=== PATIENT | female | born 1955 | race Asian ===

== ENCOUNTER 2017-07-20 21:57 | Emergency (ER) | payer OTHER ==
[~2017-07-20] VITALS: Ht 154.9 cm; Wt 53.5 kg
[2017-07-20 22:20] VITALS: BP 141/77
== END 2017-07-21 03:00 | disposition home or self-care (01) ==
LOC: ER 22:07
DX: S01.152A Open bite of left eyelid and periocular area, initial encounter (principal); E78.5 Hyperlipidemia, unspecified; W54.0XXA Bitten by dog, initial encounter; Y93.89 Activity, other specified; Y92.89 Other specified places as the place of occurrence of the external cause; Y99.8 Other external cause status; Z88.6 Allergy status to analgesic agent; Z88.8 Allergy status to other drugs, medicaments and biological substances

== ENCOUNTER → 2020-03-27 | Day surgery (SDC) | payer OTHER ==
[2020-03-21 14:49] LABS: Urine WBC None Seen /hpf (0 - 5)
[2020-03-21 15:02] LABS: Basophils # (auto) 0.1 10 ^3/uL (0-0.2); Basophils % (auto) 0.8 % (0.0-2.0); Eosinophils # (auto) 0.2 10 ^3/uL (0-0.8); Eosinophils % (auto) 2.3 % (0.0-7.0); Hemoglobin 12.2 g/dL (12.2-16.2); Lymphocytes # (auto) 3.1 10 ^3/uL (0.4-5.4); Lymphocytes % (auto) 41.8 % (10.0-50.0); Mean Corpuscular Hemoglobin 30.6 pg (28.0-32.0); Mean Corpuscular Volume 92.8 fL (80.0-100.0); Monocytes # (auto) 0.4 10 ^3/uL (0-1.3); Neutrophils # (auto) 3.7 10 ^3/uL (1.6-8.6); Neutrophils % (auto) 50.1 % (37.0-80.0); Nucleated Red Blood Cells % 0.1 %; Platelet Count (auto) 235 10^3/uL (140-450); Red Blood Cells 3.99 10^6/uL (4.0-5.20); Red Cell Distribution Width 13.4 % (11.8-14.3); White Blood Cell 7.5 10^3/uL (4.4-10.8)
[2020-03-21 15:15] LABS: Albumin 3.7 g/dL (3.4-5.0)
[2020-03-21 15:17] LABS: INR 0.97 (0.9-1.15); Partial Thromboplastin Time 24.9 sec (23.0-31.2)
[2020-03-21 15:18] LABS: BUN/Creatinine Ratio 11.2; Bilirubin, Total 0.2 mg/dL (0.2-1.0); Total Protein 7.5 g/dL (6.4-8.2)
[2020-03-21 18:10] LABS: Urine Bacteria NONE SEEN /hpf (None Seen); Urine Blood Negative /uL (Negative); Urine Specific Gravity 1.004 (1.001-1.035)
[~2020-03-27] VITALS: Ht 154.9 cm; Wt 54.4 kg
[~2020-03-27] MED LIST: ATOR20TA50 PO; CHOL1TAB28 PO; CITA-36 PO; CLON1TAB10 PO; KETAMINE HCL 10 ML ONE; LAMO200T34 PO; LEVO25TA6 PO; MIDAZOLAM HCL 1MG/1ML-2 ML VIAL ONE; MORPHINE SULFATE 4 MG/ML SYR/VIAL IV PRN; ONDANSETRON HCL 4 MG/2 ML VIAL IV PRN; ONDANSETRON HCL 4 MG/2 ML VIAL ONE; PANT40TA2 PO; PROPOFOL 10 MG/ML 20 ML IV ONE; RIS1T PO; SODIUM CHLORIDE LOCK 10 ML ONE; ceFAZolin 1GM/50ML 50 ML IV ONE; fentaNYL CITRATE 100 MCG/2 ML VL ONE
[2020-03-27] MEDS: HYDROmorphone HCL 2 MG/ML VL IV PRN ×3 (13:10→15:00)
[2020-03-27 15:30] VITALS: BP 127/59
== END | disposition home or self-care (01) ==
LOC: SUR 10:07
PROVIDERS: ATTEND Orthopaedic Surgery Adult Reconstructive Orthopaedic Surgery
DX: Z47.2 Encounter for removal of internal fixation device (principal); E11.9 Type 2 diabetes mellitus without complications; F20.9 Schizophrenia, unspecified; F31.9 Bipolar disorder, unspecified; E03.9 Hypothyroidism, unspecified; Z88.8 Allergy status to other drugs, medicaments and biological substances; Z79.899 Other long term (current) drug therapy; Z20.828 Contact with and (suspected) exposure to other viral communicable diseases; Z98.890 Other specified postprocedural states
CPT/HCPCS: 20680; 36415; 73600; 80053; 81001; 85025; 85610; 85730; 88300; J0690; J1170; J2250; J2405; J2704; J3010; U0003; 76000

== ENCOUNTER 2020-10-27 22:57 | Emergency (ER) | payer OTHER ==
[~2020-10-27] VITALS: Ht 154.9 cm; Wt 54.4 kg
[~2020-10-27 22:57] MED LIST changes: -CITA-36 PO; +CITA40TA12 PO; -KETAMINE HCL 10 ML ONE; -MIDAZOLAM HCL 1MG/1ML-2 ML VIAL ONE; -MORPHINE SULFATE 4 MG/ML SYR/VIAL IV PRN; -ONDANSETRON HCL 4 MG/2 ML VIAL IV PRN; -ONDANSETRON HCL 4 MG/2 ML VIAL ONE; -PROPOFOL 10 MG/ML 20 ML IV ONE; -SODIUM CHLORIDE LOCK 10 ML ONE; -ceFAZolin 1GM/50ML 50 ML IV ONE; -fentaNYL CITRATE 100 MCG/2 ML VL ONE
[2020-10-28 02:45] LABS: Basophils # (auto) 0.1 10 ^3/uL (0-0.2); Basophils % (auto) 1.2 % (0.0-2.0); Eosinophils # (auto) 0.4 10 ^3/uL (0-0.8); Eosinophils % (auto) 4.6 % (0.0-7.0); Hematocrit 35.2 % (36.0-46.0); Hemoglobin 11.8 g/dL (12.2-16.2); Lymphocytes # (auto) 2.8 10 ^3/uL (0.4-5.4); Lymphocytes % (auto) 34.4 % (10.0-50.0); Mean Corpuscular Hemoglobin 30.4 pg (28.0-32.0); Mean Corpuscular Hgb Conc. 33.4 g/dL (32.0-36.0); Mean Corpuscular Volume 90.9 fL (80.0-100.0); Monocytes # (auto) 0.7 10 ^3/uL (0-1.3); Neutrophils # (auto) 4.1 10 ^3/uL (1.6-8.6); Neutrophils % (auto) 50.8 % (37.0-80.0); Nucleated Red Blood Cells % 0.1 %; Platelet Count (auto) 241 10^3/uL (140-450); Red Blood Cells 3.87 10^6/uL (4.0-5.20)
[2020-10-28 02:58] LABS: Urine Bacteria FEW /hpf (None Seen); Urine Blood Negative /uL (Negative); Urine Specific Gravity 1.002 (1.001-1.035); Urine WBC 1 /hpf (0 - 5)
[2020-10-28 03:02] LABS: Alcohol, Urine < 3.0 mg/dL (0-10); Amphetamine Screen, Urine NEGATIVE (NEGATIVE); Barbiturate Scree,Urine NEGATIVE (NEGATIVE); Benzodiazephine Screen, Urine NEGATIVE (NEGATIVE); Cannabinoid Screen, Urine NEGATIVE (NEGATIVE); Cocaine Screen, Urine NEGATIVE (NEGATIVE); Opiate Scree,Urine NEGATIVE (NEGATIVE); Phencyclidine Screen, Urine NEGATIVE (NEGATIVE)
[2020-10-28 03:03] LABS: Albumin 3.4 g/dL (3.4-5.0); BUN/Creatinine Ratio 13.2; Calcium 8.7 mg/dL (8.5-10.1); Potassium 3.9 mmol/L (3.5-5.1)
[2020-10-28 03:04] LABS: Salicylate < 1.7 mg/dL (2.8-20.0)
[2020-10-28 03:05] LABS: Bilirubin, Total 0.2 mg/dL (0.2-1.0)
[2020-10-28 03:09] LABS: Acetaminophen < 2.0 ug/mL (10-30)
[2020-10-28 07:30] VITALS: BP 111/60
== END 2020-10-28 08:43 | disposition home or self-care (01) ==
LOC: ER 22:59
DX: F32.9 Major depressive disorder, single episode, unspecified (principal)
CPT/HCPCS: 36415; 80053; 80307; 80329; 81001; 85025

== ENCOUNTER 2020-11-21 22:02 | Emergency (ER) | payer OTHER ==
[~2020-11-21] VITALS: Ht 154.9 cm; Wt 58.1 kg
[2020-11-22 02:35] VITALS: BP 153/68
[2020-11-22] MEDS ORDERED: KETOROLAC TROMETH 60MG/2ML VIAL IM ONE (02:45)
[2020-11-22] MEDS ORDERED: MORPHINE SULF INJ 2 MG/ML SYRINGE 1ML IM ONE (06:00)
== END 2020-11-22 06:49 | disposition home or self-care (01) ==
LOC: ER 22:05
DX: M25.572 Pain in left ankle and joints of left foot (principal); G89.29 Other chronic pain; E78.5 Hyperlipidemia, unspecified; R00.1 Bradycardia, unspecified
CPT/HCPCS: 73590; 73610; 93005; 96372; 99284; J1885; J2270

== ENCOUNTER 2021-07-10 15:58 | Emergency (ER) | payer OTHER ==
[~2021-07-10] VITALS: Ht 154.9 cm; Wt 59.0 kg
[~2021-07-10 15:58] MED LIST changes: +CLON-853 PO; -CLON1TAB10 PO
[2021-07-10 16:37] LABS: Urine Bacteria NONE SEEN /hpf (None Seen); Urine Blood Negative /uL (Negative); Urine Specific Gravity 1.001 (1.001-1.035); Urine WBC <1 /hpf (0 - 5)
[2021-07-10 17:08] LABS: Basophils # (auto) 0.1 10 ^3/uL (0-0.2); Basophils % (auto) 0.9 % (0.0-2.0); Eosinophils # (auto) 0.2 10 ^3/uL (0-0.8); Eosinophils % (auto) 2.1 % (0.0-7.0); Hematocrit 38.3 % (36.0-46.0); Hemoglobin 12.3 g/dL (12.2-16.2); Lymphocytes # (auto) 3.8 10 ^3/uL (0.4-5.4); Lymphocytes % (auto) 42.7 % (10.0-50.0); Mean Corpuscular Hemoglobin 29.1 pg (28.0-32.0); Mean Corpuscular Hgb Conc. 32.2 g/dL (32.0-36.0); Mean Corpuscular Volume 90.4 fL (80.0-100.0); Monocytes # (auto) 0.6 10 ^3/uL (0-1.3); Monocytes % (auto) 6.6 % (0.0-12.0); Neutrophils # (auto) 4.2 10 ^3/uL (1.6-8.6); Neutrophils % (auto) 47.7 % (37.0-80.0); Red Blood Cells 4.23 10^6/uL (4.0-5.20); Red Cell Distribution Width 14.6 % (11.8-14.3); White Blood Cell 8.9 10^3/uL (4.4-10.8)
[2021-07-10 17:32] LABS: Albumin 3.5 g/dL (3.4-5.0); Calcium 8.6 mg/dL (8.5-10.1); Magnesium 3.1 mg/dL (1.6-2.6); Potassium 4.3 mmol/L (3.5-5.1)
[2021-07-10 17:39] LABS: BUN/Creatinine Ratio 10.3; Bilirubin, Total 0.2 mg/dL (0.2-1.0); Total Protein 7.3 g/dL (6.4-8.2)
[2021-07-10 22:10] VITALS: BP 140/68
== END 2021-07-10 20:05 | disposition home or self-care (01) ==
LOC: ER 15:58
DX: B34.9 Viral infection, unspecified (principal); F41.9 Anxiety disorder, unspecified; F32.9 Major depressive disorder, single episode, unspecified; E78.5 Hyperlipidemia, unspecified; Z79.899 Other long term (current) drug therapy; Z88.8 Allergy status to other drugs, medicaments and biological substances
CPT/HCPCS: 36415; 71045; 80053; 81001; 83735; 84484; 85025; 93005

== ENCOUNTER 2021-09-17 20:23 | Emergency (ER) | payer OTHER ==
[~2021-09-17] VITALS: Ht 193 cm; Wt 57.2 kg
[2021-09-17] MEDS ORDERED: HYDROcodone-ACET 5/325MG TAB PO ONE (22:15)
[2021-09-18] MEDS ORDERED: BAC09TP TOP (03:28)
[2021-09-18] MEDS ORDERED: NAP500T PO (03:28)
[2021-09-18] MEDS ORDERED: BACITRACIN TOP OINT 1 UD PKG TOP ONE ×2 (03:43→04:00)
[2021-09-18] MEDS ORDERED: KETOROLAC TROMETH 60MG/2ML VIAL IM ONE (03:45)
[2021-09-18 03:58] VITALS: BP 132/75
== END 2021-09-18 04:10 | disposition home or self-care (01) ==
LOC: ER 20:23 → EDUNIT# 20:23 → EDBD 20:23 → ER 09-18 04:10
DX: S16.1XXA Strain of muscle, fascia and tendon at neck level, initial encounter (principal); S80.812A Abrasion, left lower leg, initial encounter; E78.5 Hyperlipidemia, unspecified; V43.62XA Car passenger injured in collision with other type car in traffic accident, initial encounter; Y93.89 Activity, other specified; Y92.410 Unspecified street and highway as the place of occurrence of the external cause; Y99.8 Other external cause status
CPT/HCPCS: 70450; 72125; 73560; 73590; 96372; 99284; J1885

== ENCOUNTER 2021-09-24 14:55 | Emergency (ER) | payer OTHER ==
[~2021-09-24] VITALS: Ht 154.9 cm; Wt 57.6 kg
[~2021-09-24 14:55] MED LIST changes: +BAC09TP TOP; +NAP500T PO
[2021-09-24 15:55] LABS: Urine Bacteria NONE SEEN /hpf (None Seen); Urine Blood Negative /uL (Negative); Urine Specific Gravity 1.004 (1.001-1.035); Urine WBC 2 /hpf (0 - 5)
[2021-09-24 16:05] LABS: Basophils # (auto) 0.1 10 ^3/uL (0-0.2); Basophils % (auto) 0.7 % (0.0-2.0); Eosinophils # (auto) 0.1 10 ^3/uL (0-0.8); Eosinophils % (auto) 1.6 % (0.0-7.0); Hematocrit 34.7 % (36.0-46.0); Hemoglobin 11.3 g/dL (12.2-16.2); Lymphocytes # (auto) 2.8 10 ^3/uL (0.4-5.4); Lymphocytes % (auto) 32.2 % (10.0-50.0); Mean Corpuscular Hemoglobin 29.9 pg (28.0-32.0); Mean Corpuscular Hgb Conc. 32.6 g/dL (32.0-36.0); Mean Corpuscular Volume 91.8 fL (80.0-100.0); Monocytes # (auto) 0.6 10 ^3/uL (0-1.3); Monocytes % (auto) 6.5 % (0.0-12.0); Neutrophils # (auto) 5.2 10 ^3/uL (1.6-8.6); Nucleated Red Blood Cells % 0.2 %; Red Blood Cells 3.78 10^6/uL (4.0-5.20); Red Cell Distribution Width 14.3 % (11.8-14.3); White Blood Cell 8.8 10^3/uL (4.4-10.8)
[2021-09-24 16:06] LABS: Alcohol, Urine < 3.0 mg/dL (0-10); Amphetamine Screen, Urine NEGATIVE (NEGATIVE); Barbiturate Scree,Urine NEGATIVE (NEGATIVE); Benzodiazephine Screen, Urine NEGATIVE (NEGATIVE); Cannabinoid Screen, Urine NEGATIVE (NEGATIVE); Cocaine Screen, Urine NEGATIVE (NEGATIVE); Opiate Scree,Urine NEGATIVE (NEGATIVE); Phencyclidine Screen, Urine NEGATIVE (NEGATIVE)
[2021-09-24 16:20] LABS: Salicylate < 1.7 mg/dL (2.8-20.0)
[2021-09-24 16:21] LABS: Alanine Aminotransferase 47 U/L (13-56); Albumin 3.7 g/dL (3.4-5.0); Anion Gap 6 (5-15); Blood Alcohol < 3.0 mg/dL (0-5); Blood Urea Nitrogen 18 mg/dL (7-18); Calcium 8.6 mg/dL (8.5-10.1); Carbon Dioxide 23 mmol/L (21-32); Chloride 103 mmol/L (98-107); Glucose 98 mg/dL (74-106); Potassium 4.3 mmol/L (3.5-5.1); Sodium 132 mmol/L (136-145)
[2021-09-24 16:24] LABS: Alkaline Phosphatase 123 U/L (45-117); Aspartate Aminotransferase 31 U/L (15-37); Bilirubin, Total 0.5 mg/dL (0.2-1.0); GFR African American 45 mL/min; GFR Non-African American 37 mL/min; Total Protein 7.1 g/dL (6.4-8.2)
[2021-09-24 16:25] LABS: Acetaminophen < 2.0 ug/mL (10-30)
[2021-09-24] MEDS ORDERED: diphenhdrAMINE HCL 50 MG/1 ML VL IV ONE (18:15)
[2021-09-24] MEDS ORDERED: HALOPERIDOL LACTATE 5 MG/ML INJ VIAL IM ONE (18:15)
[2021-09-24] MEDS ORDERED: LORazepam 2MG/ML-1ML VIAL IM ONE (18:15)
[2021-09-25] MEDS ORDERED: diphenhdrAMINE HCL 25 MG CAP PO ONE (04:45)
[2021-09-25] MEDS ORDERED: LORazepam 2MG/ML-1ML VIAL IM ONE (04:45)
[2021-09-25] MEDS ORDERED: diphenhdrAMINE HCL 50 MG/1 ML VL IM ONE (04:45)
[2021-09-25] MEDS ORDERED: LORazepam 0.5 MG TAB PO ONE (04:45)
[2021-09-25 07:38] VITALS: BP 126/66
[2021-09-25] MEDS ORDERED: LEVOTHYROXINE SODIUM 25 MCG TAB PO ONE ×2 (10:45→17:31)
[2021-09-25] MEDS ORDERED: PANTOPRAZOLE 40 MG TAB PO ONE (10:45)
[2021-09-25] MEDS ORDERED: cefTRIAXone W LIDOCAINE 1 GM IM IM ONE (12:30)
[2021-09-25] MEDS ORDERED: LEVO50TA7 PO (17:04)
[2021-09-25] MEDS ORDERED: ALEN70TA74 PO (17:04)
[2021-09-25] MEDS ORDERED: CITALOPRAM HYDROBR 20 MG TAB PO ONE (18:15)
[2021-09-26] MEDS ORDERED: LEVOTHYROXINE SODIUM 50 MCG TAB PO SCH (07:00)
[2021-09-26] MEDS ORDERED: PANTOPRAZOLE 40 MG TAB PO SCH (10:00)
== END 2021-09-25 19:08 | disposition home or self-care (01) ==
LOC: ER 14:55
DX: F32.9 Major depressive disorder, single episode, unspecified (principal); E78.5 Hyperlipidemia, unspecified; Z79.899 Other long term (current) drug therapy; Z88.8 Allergy status to other drugs, medicaments and biological substances
CPT/HCPCS: 36415; 71046; 73590; 80053; 80307; 80320; 80329; 81001; 84443; 85025; 93005; 96372; 96374; 99285; J1200; J1630; J2060

== ENCOUNTER 2021-12-11 05:12 | Emergency (ER) | payer OTHER ==
[~2021-12-11] VITALS: Ht 154.9 cm; Wt 61.2 kg
[~2021-12-11 05:12] MED LIST changes: +ALEN70TA74 PO; -BAC09TP TOP; -CHOL1TAB28 PO; -LEVO25TA6 PO; +LEVO50TA7 PO
[2021-12-11 05:43] LABS: Basophils # (auto) 0 10 ^3/uL (0-0.2); Basophils % (auto) 0.4 % (0.0-2.0); Eosinophils # (auto) 0 10 ^3/uL (0-0.8); Hematocrit 35.4 % (36.0-46.0); Hemoglobin 11.8 g/dL (12.2-16.2); Lymphocytes % (auto) 17.6 % (10.0-50.0); Mean Corpuscular Hemoglobin 29.6 pg (28.0-32.0); Mean Corpuscular Hgb Conc. 33.4 g/dL (32.0-36.0); Mean Corpuscular Volume 88.7 fL (80.0-100.0); Monocytes # (auto) 0.4 10 ^3/uL (0-1.3); Monocytes % (auto) 3.1 % (0.0-12.0); Neutrophils # (auto) 9.1 10 ^3/uL (1.6-8.6); Neutrophils % (auto) 78.9 % (37.0-80.0); Red Blood Cells 3.99 10^6/uL (4.0-5.20); Red Cell Distribution Width 14.2 % (11.8-14.3); White Blood Cell 11.6 10^3/uL (4.4-10.8)
[2021-12-11 05:57] LABS: Anion Gap 10 (5-15); BUN/Creatinine Ratio 12.6; Blood Alcohol < 3.0 mg/dL (0-5); Blood Urea Nitrogen 17 mg/dL (7-18); Calcium 9.2 mg/dL (8.5-10.1); Carbon Dioxide 22 mmol/L (21-32); Chloride 106 mmol/L (98-107); GFR African American 50 mL/min; GFR Non-African American 42 mL/min; Glucose 146 mg/dL (74-106); Potassium 4.2 mmol/L (3.5-5.1); Sodium 138 mmol/L (136-145)
[2021-12-11] MEDS ORDERED: LORazepam 0.5 MG TAB PO ONE (07:30)
[2021-12-11 07:31] VITALS: BP 115/68
[2021-12-11] MEDS ORDERED: PANTOPRAZOLE 40 MG TAB PO ONE (10:00)
[2021-12-11] MEDS ORDERED: LEVOTHYROXINE SODIUM 25 MCG TAB PO ONE (10:00)
[2021-12-11] MEDS ORDERED: CITALOPRAM HYDROBR 20 MG TAB PO ONE (13:15)
[2021-12-11 14:44] LABS: Alcohol, Urine < 3.0 mg/dL (0-10); Amphetamine Screen, Urine NEGATIVE (NEGATIVE); Barbiturate Scree,Urine NEGATIVE (NEGATIVE); Benzodiazephine Screen, Urine NEGATIVE (NEGATIVE); Cannabinoid Screen, Urine NEGATIVE (NEGATIVE); Cocaine Screen, Urine NEGATIVE (NEGATIVE); Opiate Scree,Urine NEGATIVE (NEGATIVE); Phencyclidine Screen, Urine NEGATIVE (NEGATIVE)
== END 2021-12-11 17:00 | disposition left against medical advice (07) ==
LOC: ER 05:12
DX: R45.851 Suicidal ideations (principal); F31.9 Bipolar disorder, unspecified; G47.00 Insomnia, unspecified; E78.5 Hyperlipidemia, unspecified; F41.9 Anxiety disorder, unspecified
CPT/HCPCS: 36415; 71046; 80048; 80307; 80320; 85025

== ENCOUNTER 2022-11-20 19:07 | Emergency (ER) | payer OTHER ==
[~2022-11-20] VITALS: Ht 154.9 cm; Wt 60.8 kg
[2022-11-20 20:02] LABS: Basophils # (auto) 0.3 10 ^3/uL (0-0.2); Basophils % (auto) 3.1 % (0.0-2.0); Eosinophils # (auto) 0.1 10 ^3/uL (0-0.8); Eosinophils % (auto) 1.6 % (0.0-7.0); Hematocrit 40.5 % (36.0-46.0); Hemoglobin 13.2 g/dL (12.2-16.2); Lymphocytes # (auto) 1.3 10 ^3/uL (0.4-5.4); Lymphocytes % (auto) 14.6 % (10.0-50.0); Mean Corpuscular Hemoglobin 28.3 pg (28.0-32.0); Mean Corpuscular Hgb Conc. 32.6 g/dL (32.0-36.0); Mean Corpuscular Volume 86.8 fL (80.0-100.0); Monocytes # (auto) 0.2 10 ^3/uL (0-1.3); Neutrophils # (auto) 7.3 10 ^3/uL (1.6-8.6); Neutrophils % (auto) 78.7 % (37.0-80.0); Nucleated Red Blood Cells % 0.1 %; Red Blood Cells 4.66 10^6/uL (4.0-5.20); White Blood Cell 9.2 10^3/uL (4.4-10.8)
[2022-11-20 20:27] LABS: Albumin 3.4 g/dL (3.4-5.0); Potassium 3.8 mmol/L (3.5-5.1)
[2022-11-20 20:31] LABS: BUN/Creatinine Ratio 13.8 (10.0-20.0); Bilirubin, Total 0.4 mg/dL (0.2-1.0); Total Protein 7.2 g/dL (6.4-8.2)
[2022-11-20] MEDS ORDERED: PANTOPRAZOLE 40 MG/10 ML VIAL INJ IV ONE (20:45)
[2022-11-20] MEDS ORDERED: MORPHINE SULFATE 4 MG/ML SYR/VIAL IV ONE (20:45)
[2022-11-20] MEDS ORDERED: SODIUM CHLORIDE 0.9% 1,000 ML IVB ONE (20:45)
[2022-11-20] MEDS ORDERED: ONDANSETRON HCL 4 MG/2 ML VIAL IV ONE (20:45)
[2022-11-20 21:03] LABS: Urine Bacteria NONE SEEN /hpf (None Seen); Urine Blood Negative /uL (Negative); Urine Specific Gravity 1.009 (1.001-1.035); Urine WBC 5 /hpf (0 - 5)
[2022-11-21] MEDS ORDERED: NITR1CAP36 PO (04:04)
[2022-11-21] MEDS ORDERED: DICY10CA PO (04:04)
[2022-11-21] MEDS ORDERED: ONDA-144 PO (04:04)
[2022-11-21 04:24] VITALS: BP 116/64
== END 2022-11-21 04:27 | disposition home or self-care (01) ==
LOC: ER 19:07
DX: R10.13 Epigastric pain (principal); R11.2 Nausea with vomiting, unspecified; K21.9 Gastro-esophageal reflux disease without esophagitis; E78.5 Hyperlipidemia, unspecified; F41.9 Anxiety disorder, unspecified; F32.9 Major depressive disorder, single episode, unspecified; Z88.8 Allergy status to other drugs, medicaments and biological substances
CPT/HCPCS: 36415; 74176; 76705; 80053; 81001; 83690; 85025; 93005; 96361; 96374; 96375; 99285; C9113; J2270; J2405; J7030

== ENCOUNTER 2024-12-27 12:27 | Emergency (ER) | payer OTHER ==
[~2024-12-27] VITALS: Ht 154.9 cm; Wt 59.0 kg
[~2024-12-27 12:27] MED LIST changes: +NITR1CAP36 PO; +ONDA-144 PO
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
--- NOTE | 2024-12-27 13:37 | ECG ---
[facility] Test Date: 2024-12-27 Test Time: 12:35:10 Pat Name: YULISA KNAPP Department: ED Room: Gender: F Volunteer Services Assistant: KAIDEN : 1955 Requested By: BARBARA WANG Order Number: [id number] Reading MD: Measurements Intervals Brice Rate: 63 P: 66 [place]: 144 QRS: -2 QRSD: 90 T: 43 QT: 416 QTc: 426 Interpretive Statements Sinus rhythm Please click the below link to view image of tracing.
--- NOTE | 2024-12-27 13:43 | DVH ---
Procedure: XY CHEST TWO VIEWS ROUTINE Exam Date: 12/27/2024 01:18 PM History: cp Comparison Study: CHEST TWO VIEWS ROUTINE on DOS: 12/11/21, CXR2 on DOS: 12/11/21, CHEST TWO VIEWS ROUT INE on DOS: 09/25/21 Technique: Frontal and lateral views of the chest were obtained. Findings: There is no focal pulmonary infiltrate or consolidation. The cardiomediastinal silhouette is within normal limits. Early uncoiling atherosclerotic change thor acic aorta. There is no large pleural effusion. The pulmonary vasculature is unremarkable. There is no acute osseous abnormality. Unchanged from prior study. IMPRESSION: 1. No radiographic evidence of acute cardiopulmonary disease. END IMPRESSION:
[2024-12-27 15:09] VITALS: BP 137/77; PULSE 57; RESP 16; TEMP 97.7; O2SAT 95
== END 2024-12-27 15:15 | disposition home or self-care (01) ==
LOC: EDUNIT# 12:27 → EDBD 12:27 → ER 12:35
DX: S20.219A Contusion of unspecified front wall of thorax, initial encounter (principal); F41.9 Anxiety disorder, unspecified; F31.9 Bipolar disorder, unspecified; K21.9 Gastro-esophageal reflux disease without esophagitis; E78.5 Hyperlipidemia, unspecified; Z79.899 Other long term (current) drug therapy; Z88.1 Allergy status to other antibiotic agents; Z88.8 Allergy status to other drugs, medicaments and biological substances; W22.01XA Walked into wall, initial encounter; Y93.89 Activity, other specified; Y92.89 Other specified places as the place of occurrence of the external cause; Y99.8 Other external cause status
CPT/HCPCS: 71046; 93005